=== PATIENT | male | born 1985 | race Caucasian/White ===

== ENCOUNTER → 2017-02-07 | Day surgery (SDC) | payer OTHER ==
[~2017-02-07] VITALS: Ht 167.6 cm; Wt 62.7 kg
[~2017-02-07] MED LIST: *RESP: ALBUTEROL 2.5 MG/3 ML NEB (PRN) PERIprocedural Use ONLY NEB ONE; *morphine SULFATE 8 MG/ML PERIprocedure ONLY ONE; ACETAMINOPHEN 1000 MG/100 ML VIAL IV ONE; CEPH-459 PO; INSULIN HUMAN REGULAR 1,000 UNITS/10 ML VIAL SQ PRN; IOHEXOL 300 MG/ML 50 ML BTL (for RAD DIAG) ONE; LACTATED RINGER'S 1000 ML INJ 1,000 ML IV ONE; LACTATED RINGER'S 1000 ML IV SCH; METOPROLOL TARTRATE 25 MG TAB PO PRN; MIDAZOLAM HCL 2 MG/2 ML VIAL ONE; NEOSTIGMINE 3 MG/3 ML SYR IV ONE; ONDANSETRON HCL 4 MG/2 ML VIAL IV PUSH ONE; ONDANSETRON HCL 4 MG/2 ML VIAL IV PUSH PRN; PERC5TAB12 PO; PROPOFOL 200 MG/20 ML AMP IV ONE; SODIUM CHLORID 0.9% 500 ML IV SCH; ceFAZolin 1,000 MG/NS 100 ML IV SCH; fentaNYL CITRATE 250 MCG/5 ML AMP ONE; oxyCODONE/ACETAMINOPHEN 5 MG/325 MG TAB PO PRN
[2017-02-07 10:15] VITALS: BP 122/72; PULSE 81; RESP 18; TEMP 98; O2SAT 100
[2017-02-07 10:37] LABS: AUTOMATED NEUTROPHIL # 4.4 TH/MM3 (1.8-7.7); BASOPHIL % 0.4 % (0.0-2.0); EOSINOPHIL # 0.1 TH/MM3 (0-0.4); EOSINOPHIL % 1.5 % (0.0-4.0); HEMO FLAGS DIFF FINAL; LYMPHOCYTE # 3.2 TH/MM3 (1.0-4.8); MEAN CELL VOLUME 88.2 FL (80.0-100.0); MEAN CORPUSCULAR HEMOGLOBIN 29.6 PG (27.0-34.0); MEAN CORPUSCULAR HGB CONC 33.5 % (32.0-36.0); MONO % 7.7 % (0.0-8.0); NEUT % 52.4 % (16.0-70.0); PLATELET COUNT 275 TH/MM3 (150-450); RED BLOOD COUNT 5.44 MIL/MM3 (4.50-5.90); RED CELL DISTRIBUTION WIDTH 13.5 % (11.6-17.2); WHITE BLOOD COUNT 8.4 TH/MM3 (4.0-11.0)
--- NOTE | 2017-02-07 12:24 | PD.OP ---
Operative Report Date of Surgery: Feb 07, 2017 Preoperative Diagnosis: (1) Ureteral calculus, right Postoperative Diagnosis: (1) Ureteral calculus, right Procedure: Cystoscopy, right retrograde pyelogram, right ureteroscopy with laser lithotripsy and right ureteral catheter placement Anesthesia: General Surgeon: Gunnar Bronson Solar Process Engineer(s): None Operation and Findings: Indication for procedure: Case of a pleasant 31-year-old gentleman with an approximately 7 mm obstructing right distal ureteral calculus who presents today to undergo right ureteroscopy with laser lithotripsy. Operative procedure in detail: Patient was brought to the operating room suite and placed supine on the cystoscopy table. He was then placed under general anesthesia. He was then repositioned in the dorsal lithotomy position and prepped and draped in normal sterile fashion. After an appropriate timeout was undertaken I proceeded with cystoscopic evaluation utilizing the rigid cystoscope with the 20 Nigerien sheath and the 30 lens. The urethra was patent without stricture formation, the prostatic urethra was nonobstructing and there were no stones seen within urinary bladder. Upright left ureteral orifice easily correct anatomic position. There was sluggish reflux of urine on the right and normal reflux of urine on the left. There were no bladder mucosal lesions. I then proceeded with performing a right retrograde pyelogram utilizing a 5 Nigerien open-ended ureteral catheter. The patient once again was noted to have an approximate 7 mm obstructing right distal ureteral stone. A sensor 0.035 wire was then advanced under fluoroscopic guidance through the cystoscope up the right ureter around the stone and up into the right kidney. With the wire and placed the cystoscope was withdrawn and the guidewire secured to sterile drape with a hemostat. The self dilating ureteroscope was then utilized and advanced alongside the previously past wire up to the point of the obstructing stone. The 200 holmium laser fiber was then utilized and laser lithotripsy of the stone was accomplished under direct vision. Several of the fragments were then retrieved utilizing the 2.4 Nigerien stone basket and sent off for chemical analysis. The ureteroscope was withdrawn and exchanged back for the cystoscope and the guidewire backloaded. The 5 Nigerien open-ended catheter was once again advanced over the wire and advanced up in to the right renal pelvis. A 16 Nigerien 10 cc Knight catheter was then placed and the open- ended ureteral catheter anchored to the Knight via a connector. Both catheters were then placed to gravity drainage. The patient tolerated the procedures without complications and was transferred to the PACU in satisfactory condition. Gunnar Bronson MD Feb 07, 2017 12:23
[2017-02-07 14:36] VITALS: BP 102/58; PULSE 75; RESP 20; TEMP 97; O2SAT 96
== END | disposition home or self-care (01) ==
LOC: HSDC 09:15
PROVIDERS: ATTEND Urology
DX: N20.1 Calculus of ureter (principal); F17.210 Nicotine dependence, cigarettes, uncomplicated
CPT/HCPCS: 00873; 52356; 74420; 82370; 85025; 88300; 94664; C1769; J0131; J0690; J2250; J2270; J2405; J2710; J3010; J7120; J7613; Q9967